=== PATIENT | female | born 1975 | race American Indian/Alaskan Native ===

== ENCOUNTER 2022-07-10 06:43 | Emergency (ER) | payer BC, MEDICAID ==
[2022-07-10] MEDS ORDERED: Sodium Chloride 0.9% 1,000 ML IV ONE (06:59)
[2022-07-10] MEDS ORDERED: LORazepam 2 MG/ML SDV IVPUSH ONE (07:00)
[2022-07-10 07:06] LABS: BASOPHILS PERCENT AUTO 0.2 % (0.0-1.0); EOSINOPHILS PERCENT AUTO 1.8 % (1.0-3.0); HEMATOCRIT 37.2 % (37.0-47.0); HEMOGLOBIN 12.7 g/dL (12.0-16.0); LYMPHOCYTES PERCENT AUTO 49.1 % (20.5-50.1); MEAN CORPUSCULAR HEMOGLOBIN 31.7 pg (27.0-34.0); MEAN CORPUSCULAR HGB CONC 34.1 g/dL (33.0-35.0); MEAN CORPUSCULAR VOLUME 92.8 fL (80-100); MONOCYTES PERCENT AUTO 6.2 % (2-8); NEUTROPHILS PERCENT AUTO 42.7 % (42.2-75.2); PLATELET COUNT,PLT 339 10^3/uL (150-450); RED BLOOD CELL COUNT 4.01 10^6/uL (4.2-5.4); WHITE BLOOD CELL COUNT,WBC 10.7 10^3/uL (5.0-10.0)
[2022-07-10 07:20] LABS: A/G RATIO 1.1; ALANINE AMINOTRANSFERASE,ALT 22 U/L (14-59); ALBUMIN 3.6 g/dL (3.4-5.0); ALKALINE PHOSPHATASE 116 U/L (46-116); ANION GAP 13.1 mEq/L (7-13); ASPARTATE AMNIOTRANSFERASE,AST 22 U/L (15-37); BILIRUBIN TOTAL 0.4 mg/dL (0.2-1.0); BLOOD UREA NITROGEN,BUN 13 mg/dL (7-18); CALCIUM 8.8 mg/dL (8.5-10.1); CARBON DIOXIDE,CO2 23 mmol/L (21-32); CHLORIDE,CL 102 mmol/L (98-107); CREATININE 0.81 mg/dL (0.55-1.02); EST CRCL DRUG DOSING (CG) 75.74 mL/min; GLUCOSE RANDOM 153 mg/dL (70-99); POTASSIUM,K 3.1 mmol/L (3.5-5.1); PROTEIN TOTAL,TP 6.9 g/dL (6.4-8.2); SODIUM,NA 135 mmol/L (136-145)
[2022-07-10 07:21] LABS: APPEARANCE,URINE SLIGHTLY CLOUDY (CLEAR); BILIRUBIN,URINE NEGATIVE (NEGATIVE); COLOR,URINE DARK YELLOW (YELLOW); GLUCOSE,URINE NEGATIVE (NEGATIVE); KETONES,URINE NEGATIVE (NEGATIVE); LEUKOCYTE ESTERASE,URINE LARGE (NEGATIVE); NITRITE,URINE NEGATIVE (NEGATIVE); OCCULT BLOOD,URINE NEGATIVE (NEGATIVE); PROTEIN,URINE TRACE (NEGATIVE); UROBILINOGEN,URINE 0.2 mg/dL (0.2-1.0)
[2022-07-10 07:23] LABS: ESTIMATED GFR 91 mL/min (>=60); ETHANOL BLOOD MEDICAL < 3 mg/dL (0)
[2022-07-10 07:26] LABS: METHAMPHETAMINES,URINE POSITIVE (NEGATIVE)
[2022-07-10 07:27] LABS: AMPHETAMINES,URINE POSITIVE (NEGATIVE); BARBITURATES,URINE NEGATIVE (NEGATIVE); BENZODIAZEPINE,URINE NEGATIVE (NEGATIVE); MDMA (ECSTASY), URINE POSITIVE (NEGATIVE); METHADONE,URINE NEGATIVE (NEGATIVE); OPIATES,URINE NEGATIVE (NEGATIVE); OXYCODONE,URINE NEGATIVE (NEGATIVE); PHENCYCLIDINE,URINE NEGATIVE (NEGATIVE); TCA,URINE NEGATIVE (NEGATIVE)
[2022-07-10] MEDS ORDERED: NS with KCl 40mEq 1,000 ML IV SCH (07:30)
[2022-07-10 07:32] LABS: BACTERIA,URINE MODERATE /HPF (0-FEW/HPF); EPITHELIAL CELLS,URINE MODERATE /HPF (NOT SEEN); MUCUS,URINE FEW /LPF (NOT SEEN); RBC,URINE 0-5 /HPF (0-5)
[2022-07-10] MEDS ORDERED: cefTRIAXone 1 GM Vial IVPUSH ONE (08:02)
[2022-07-14 11:46] LABS: C.TRACHOMATIS BY TMA Negative (Negative); M GENITALIUM Negative (Negative); M GENITALIUM SOURCE Urine; N.GONORRHOEAE BY TMA Negative (Negative); SOURCE Urine
== END 2022-07-10 11:29 | disposition home or self-care (01) ==
LOC: DL.ED 06:43
DX: F15.180 Other stimulant abuse with stimulant-induced anxiety disorder (principal); F12.922 Cannabis use, unspecified with intoxication with perceptual disturbance; F17.210 Nicotine dependence, cigarettes, uncomplicated; E87.6 Hypokalemia; F19.10 Other psychoactive substance abuse, uncomplicated
CPT/HCPCS: 36415; 80053; 80305-QW; 80307; 81001; 81025; 82947; 84484; 85025; 87086; 87491; 87563; 87591; 96361; 96374; 96375; 99285; 99285-25; J0696; J2060; J3480; J7030

== ENCOUNTER 2022-07-10 16:53 | Observation (INO) | payer BC ==
[2022-07-10] MEDS ORDERED: Sodium Chloride 0.9% 10 ML Syringe FLUSH PRN (17:03)
[2022-07-10 17:24] LABS: BASOPHILS PERCENT AUTO 0.2 % (0.0-1.0); EOSINOPHILS PERCENT AUTO 0.3 % (1.0-3.0); HEMATOCRIT 38.4 % (37.0-47.0); HEMOGLOBIN 12.5 g/dL (12.0-16.0); LYMPHOCYTES PERCENT AUTO 13.3 % (20.5-50.1); MEAN CORPUSCULAR HEMOGLOBIN 31.5 pg (27.0-34.0); MEAN CORPUSCULAR HGB CONC 32.6 g/dL (33.0-35.0); MEAN CORPUSCULAR VOLUME 96.7 fL (80-100); MONOCYTES PERCENT AUTO 4.5 % (2-8); NEUTROPHILS PERCENT AUTO 81.7 % (42.2-75.2); PLATELET COUNT,PLT 299 10^3/uL (150-450); RED BLOOD CELL COUNT 3.97 10^6/uL (4.2-5.4); WHITE BLOOD CELL COUNT,WBC 9.9 10^3/uL (5.0-10.0)
[2022-07-10 17:33] LABS: METHAMPHETAMINES,URINE POSITIVE (NEGATIVE)
[2022-07-10 17:34] LABS: AMPHETAMINES,URINE POSITIVE (NEGATIVE); BARBITURATES,URINE NEGATIVE (NEGATIVE); BENZODIAZEPINE,URINE POSITIVE (NEGATIVE); MDMA (ECSTASY), URINE POSITIVE (NEGATIVE); METHADONE,URINE NEGATIVE (NEGATIVE); OPIATES,URINE NEGATIVE (NEGATIVE); OXYCODONE,URINE NEGATIVE (NEGATIVE); PHENCYCLIDINE,URINE NEGATIVE (NEGATIVE); TCA,URINE NEGATIVE (NEGATIVE)
[2022-07-10 17:43] LABS: A/G RATIO 1.1; ALANINE AMINOTRANSFERASE,ALT 21 U/L (14-59); ALBUMIN 3.5 g/dL (3.4-5.0); ALKALINE PHOSPHATASE 102 U/L (46-116); ANION GAP 9.3 mEq/L (7-13); ASPARTATE AMNIOTRANSFERASE,AST 19 U/L (15-37); BILIRUBIN TOTAL 0.5 mg/dL (0.2-1.0); BLOOD UREA NITROGEN,BUN 11 mg/dL (7-18); BUN/CREATININE RATIO 13.4 (No establ ref range); CALCIUM 8.1 mg/dL (8.5-10.1); CARBON DIOXIDE,CO2 27 mmol/L (21-32); CHLORIDE,CL 108 mmol/L (98-107); CREATININE 0.82 mg/dL (0.55-1.02); EST CRCL DRUG DOSING (CG) 74.81 mL/min; GLUCOSE RANDOM 134 mg/dL (70-99); POTASSIUM,K 4.3 mmol/L (3.5-5.1); PROTEIN TOTAL,TP 6.8 g/dL (6.4-8.2); SODIUM,NA 140 mmol/L (136-145)
[2022-07-10 17:44] LABS: ESTIMATED GFR 90 mL/min (>=60); ETHANOL BLOOD MEDICAL < 3 mg/dL (0)
[2022-07-10] MEDS ORDERED: Docusate Sodium 100 MG Cap PO PRN (18:53)
[2022-07-10] MEDS ORDERED: Acetaminophen 325 MG Tab PO PRN (18:53)
[2022-07-10] MEDS ORDERED: Ondansetron 4 MG Tab.DIS PO PRN (18:53)
[2022-07-10] MEDS ORDERED: LORazepam 0.5 MG Tab PO PRN (18:58)
[2022-07-10] MEDS ORDERED: Thiamine 100 MG Tab PO SCH (21:00)
[2022-07-10] MEDS: Sodium Chloride 0.9% 1,000 ML IV SCH (21:22)
[2022-07-11] MEDS: Sodium Chloride 0.9% 1,000 ML IV SCH ×2 (05:02→13:24)
[2022-07-11 06:37] LABS: BASOPHILS PERCENT AUTO 0.2 % (0.0-1.0); EOSINOPHILS PERCENT AUTO 1.5 % (1.0-3.0); HEMATOCRIT 35.5 % (37.0-47.0); HEMOGLOBIN 11.4 g/dL (12.0-16.0); LYMPHOCYTES PERCENT AUTO 24.4 % (20.5-50.1); MEAN CORPUSCULAR HEMOGLOBIN 31.5 pg (27.0-34.0); MEAN CORPUSCULAR HGB CONC 32.1 g/dL (33.0-35.0); MEAN CORPUSCULAR VOLUME 98.1 fL (80-100); MONOCYTES PERCENT AUTO 6.1 % (2-8); NEUTROPHILS PERCENT AUTO 67.8 % (42.2-75.2); PLATELET COUNT,PLT 290 10^3/uL (150-450); RED BLOOD CELL COUNT 3.62 10^6/uL (4.2-5.4); WHITE BLOOD CELL COUNT,WBC 9.5 10^3/uL (5.0-10.0)
[2022-07-11 07:07] LABS: A/G RATIO 0.96; ALBUMIN 2.7 g/dL (3.4-5.0); ANION GAP 8.6 mEq/L (7-13); BILIRUBIN TOTAL 0.6 mg/dL (0.2-1.0); BUN/CREATININE RATIO 15.4 (No establ ref range); CALCIUM 7.8 mg/dL (8.5-10.1); CREATININE 0.65 mg/dL (0.55-1.02); EST CRCL DRUG DOSING (CG) 94.38 mL/min; POTASSIUM,K 3.6 mmol/L (3.5-5.1); PROTEIN TOTAL,TP 5.5 g/dL (6.4-8.2)
[2022-07-11] MEDS ORDERED: Folic Acid 1 MG Tab PO SCH (09:00)
[2022-07-11] MEDS ORDERED: Multivitamin Tab PO SCH (09:00)
[2022-07-11] MEDS ORDERED: Nicotine 21 MG/24 Hr Patch TRDERM SCH (09:00)
== END 2022-07-11 18:00 | disposition home or self-care (01) ==
LOC: DL.ED 16:53 → DL.MS 18:26
PROVIDERS: ADMIT Internal Medicine; ATTEND Internal Medicine
DX: F15.180 Other stimulant abuse with stimulant-induced anxiety disorder (principal); E87.6 Hypokalemia; F12.10 Cannabis abuse, uncomplicated; F10.10 Alcohol abuse, uncomplicated; F17.210 Nicotine dependence, cigarettes, uncomplicated; Z79.899 Other long term (current) drug therapy
CPT/HCPCS: 36415; 70450; 80053; 80305-QW; 80307; 83735; 85025; 96360; 96361; 99285; A9270-GY; C1758; G0378; J3490; J7030